=== PATIENT | male | born 1975 | race Caucasian/White ===

== ENCOUNTER 2020-04-17 12:17 | Emergency (ER) | payer MEDICARE, MEDICAID ==
[~2020-04-17] VITALS: Ht 188 cm; Wt 68.2 kg
[~2020-04-17 12:17] MED LIST: UNABLE TO OBTAIN
[2020-04-17 12:20] VITALS: BP 128/99
[2020-04-17 12:52] LABS: BASOPHILS # (AUTO) 0.1 X10'3 (0-0.2); BASOPHILS % (AUTO) 0.7 % (0-1); EOSINOPHILS # (AUTO) 0.2 X10'3 (0-0.9); EOSINOPHILS % (AUTO) 1.9 % (0-6); HEMATOCRIT 40.4 % (42.0-52.0); HEMOGLOBIN 13.6 g/dl (14.0-17.9); LYMPHOCYTES # (AUTO) 1.2 X10'3 (1.1-4.8); LYMPHOCYTES % (AUTO) 13.9 % (21-51); MEAN CORPUSCULAR HEMOGLOBIN 31.2 PG (27.0-31.0); MEAN CORPUSCULAR HGB CONC 33.7 g/dL (33.0-36.5); MEAN CORPUSCULAR VOLUME 92.7 FL (78-98); MEAN PLATELET VOLUME 7.8 FL (7.4-10.4); MONOCYTES # (AUTO) 0.4 X10'3 (0-0.9); MONOCYTES % (AUTO) 5.1 % (2-12); NEUTROPHILS # (AUTO) 6.9 X10'3 (1.8-7.7); NEUTROPHILS % (AUTO) 78.4 % (42-75); PLATELET COUNT 311 X10'3 (140-440); RED BLOOD COUNT 4.36 X10'6 (4.70-6.10); RED CELL DISTRIBUTION WIDTH 13.1 % (11.5-14.5); WHITE BLOOD COUNT 8.8 X10'3 (4.5-11.0)
[2020-04-17 13:17] LABS: ALANINE AMINOTRANSFERASE 40 U/L (12-78); ALBUMIN/GLOBULIN RATIO 1.1 (1.1-1.5); ALKALINE PHOSPHATASE 76 IU/L (46-116); ANION GAP 9 (8-16); ASPARTATE AMINO TRANSFERASE 16 U/L (10-37); BILIRUBIN,TOTAL 0.4 MG/DL (0.1-1.0); BLOOD UREA NITROGEN 17 MG/DL (7-18); BUN/CREATININE RATIO 17.5 (5.4-32.0); CALCIUM 9.2 MG/DL (8.5-10.1); CHLORIDE 107 MMOL/L (99-107); CREATININE 0.97 MG/DL (0.60-1.10); GLUCOSE 124 MG/DL (70-104); POTASSIUM 3.8 MMOL/L (3.5-5.1); SODIUM 142 MMOL/L (135-145); TOTAL PROTEIN 7.6 G/DL (6.4-8.2); eGFR 84 ML/MIN
[2020-04-17 13:27] LABS: ETHANOL < 0.010 GM/DL (0.0-0.010)
[2020-04-17 14:27] LABS: CLARITY,URINE CLEAR (Clear); COLOR,URINE YELLOW (Yellow); GLUCOSE, URINE NEGATIVE (Neg); KETONES,URINE NEGATIVE (Neg); LEUKOCYTE ESTERASE ,URINE NEGATIVE (Neg); NITRITES, URINE NEGATIVE (Neg); OCCULT BLOOD,URINE NEGATIVE (Neg); PROTEIN,URINE NEGATIVE (Neg); UROBILINOGEN,URINE 0.2 E.U/dL (0.2-1.0)
[2020-04-17 14:29] LABS: UA COLLECTION TYPE CLN CATCH MIDSTREAM
[2020-04-17 14:40] LABS: URINE AMPHETAMINE SCREEN POSITIVE (Neg); URINE BARBITUATE SCREEN NEGATIVE (Neg); URINE BENZODIAZEPINES SCREEN NEGATIVE (Neg); URINE CANNABINOID SCREEN POSITIVE (Neg); URINE COCAINE SCREEN NEGATIVE (Neg); URINE METHADONE SCREEN NEGATIVE (Neg); URINE OPIATE SCREEN NEGATIVE (Neg); URINE PHENCYCLIDINE SCREEN NEGATIVE (Neg)
--- NOTE | 2020-04-17 15:56 | NUR ---
PACKET FAXED TO [facility]
== END 2020-04-17 17:52 ==
LOC: ER 12:18
DX: F29 Unspecified psychosis not due to a substance or known physiological condition (principal); R41.0 Disorientation, unspecified; Z87.820 Personal history of traumatic brain injury
CPT/HCPCS: 36415; 80053; 80305; 80320; 81003; 84443; 85025; 99285

== ENCOUNTER 2020-06-11 20:50 | Emergency (ER) | payer MEDICARE, MEDICAID ==
[~2020-06-11] VITALS: Ht 188 cm; Wt 72.7 kg
[2020-06-11 20:51] VITALS: BP 141/104
== END 2020-06-11 21:19 | disposition home or self-care (01) ==
LOC: ER 20:51
DX: Z00.00 Encounter for general adult medical examination without abnormal findings (principal); F10.10 Alcohol abuse, uncomplicated; F15.90 Other stimulant use, unspecified, uncomplicated
CPT/HCPCS: 99281

== ENCOUNTER 2023-06-25 13:44 | Inpatient (IN) | payer MEDICARE, MEDICAID ==
[~2023-06-25] VITALS: Ht 188 cm; Wt 69.5 kg
[~2023-06-25 13:44] MED LIST changes: +CLIN-97 PO; +DOXY-1 PO; +NAPR-56 PO
[2023-06-25 14:52] LABS: BASOPHILS % (AUTO) 0.4 % (0-1); EOSINOPHILS # (AUTO) 0.1 X10'3 (0-0.9); EOSINOPHILS % (AUTO) 0.8 % (0-6); HEMATOCRIT 36.4 % (42.0-52.0); HEMOGLOBIN 12.5 g/dl (14.0-17.9); LYMPHOCYTES # (AUTO) 1.2 X10'3 (1.1-4.8); MEAN CORPUSCULAR HEMOGLOBIN 31.3 PG (27.0-31.0); MEAN CORPUSCULAR HGB CONC 34.2 g/dL (33.0-36.5); MEAN CORPUSCULAR VOLUME 91.4 FL (78-98); MONOCYTES # (AUTO) 0.6 X10'3 (0-0.9); NEUTROPHILS # (AUTO) 7.6 X10'3 (1.8-7.7); NEUTROPHILS % (AUTO) 79.8 % (42-75); PLATELET COUNT 385 X10'3 (140-440); RED BLOOD COUNT 3.98 X10'6 (4.70-6.10); RED CELL DISTRIBUTION WIDTH 12.8 % (11.5-14.5); WHITE BLOOD COUNT 9.5 X10'3 (4.5-11.0)
[2023-06-25 15:01] LABS: ALANINE AMINOTRANSFERASE 53 U/L (12-78); ALBUMIN 3.8 G/DL (3.4-5.0); ALKALINE PHOSPHATASE 85 IU/L (46-116); ANION GAP 8 (8-16); ASPARTATE AMINO TRANSFERASE 29 U/L (10-37); BILIRUBIN,TOTAL 0.2 MG/DL (0.1-1.0); BLOOD UREA NITROGEN 19 MG/DL (7-18); BUN/CREATININE RATIO 16.5 (10.0-20.0); CALCIUM 9.7 MG/DL (8.5-10.1); CHLORIDE 100 MMOL/L (99-107); CREATININE 1.15 MG/DL (0.60-1.10); GLUCOSE 110 MG/DL (70-104); SODIUM 134 MMOL/L (135-145); TOTAL CARBON DIOXIDE 25.6 MMOL/L (24-32); TOTAL PROTEIN 7.7 G/DL (6.4-8.2); eCRCL 77 ML/MIN; eGFR 68 ML/MIN
[2023-06-25 15:09] LABS: ETHANOL < 10 MG/DL (<10); THYROID STIMULATING HORMONE 1.73 ulU/ml (0.34-4.50)
--- NOTE | 2023-06-25 15:10 | NUR ---
Patient admitted to ED overflow. Tall thin middle aged dark headed man with black/herrera facial hair. Irritable. Labile. Tangential. Speech clear. Disheveled appearance. Impaired gait. Left knee packed wound. Reports was packed a few days ago here in the ER. Appears to be infected. Reports his friend kathi and his cat is in the care of his vetrinarian. Tearful. Reports "there's nothing left for me."
--- NOTE | 2023-06-25 16:24 | NUR ---
Patient responding to internal stimuli at this time. Eating and drinking snack provided by nurse. No s/sx of acute distess. Will continue to monitor.
[2023-06-25 17:14] LABS: URINE AMPHETAMINE SCREEN POSITIVE (Neg); URINE BARBITUATE SCREEN NEGATIVE (Neg); URINE BENZODIAZEPINES SCREEN NEGATIVE (Neg); URINE CANNABINOID SCREEN POSITIVE (Neg); URINE COCAINE SCREEN NEGATIVE (Neg); URINE METHADONE SCREEN NEGATIVE (Neg); URINE OPIATE SCREEN NEGATIVE (Neg); URINE PHENCYCLIDINE SCREEN NEGATIVE (Neg)
[2023-06-25] MEDS ORDERED: NO HOME MEDS (17:49)
--- NOTE | 2023-06-25 18:00 | NUR ---
Obtained wound culture to left knee. Wound consult orders placed. Will continue to monitor.
--- NOTE | 2023-06-25 18:41 | NUR ---
Transferred care to Paulina SCHAEFER. She's aware med req needs completed.
--- NOTE | 2023-06-25 19:58 | NUR ---
Pt ate 2 trays and some snacks. Pt is homeless. He is agitated because per pt he cannot get any help. He is verbalizing he might as well throw himself in front of a bus. He is disorganized and tangential at times in his conversation. He was released from our ED on Sunday with a prescription for Doxycycline to treat knee wound. He did not cherry picker operator the med. Dr Zhang declined request by nursing to order an antibiotic for the pt to take here, which angered the pt. Pt vented, encouraged to try and get a good night sleep and he would be evaluated by [facility] tomorrow. Pt was able to calm himself and is asleep at this time.
--- NOTE | 2023-06-25 22:53 | NUR ---
Pt sleeping. Woke up briefly yelled for pillow. Provided pillow and warm blanket. Pt grateful said thank you went back to sleep.
--- NOTE | 2023-06-26 00:46 | NUR ---
Up to BR independantly. Walks with a limp due to Knee wound.
--- NOTE | 2023-06-26 05:18 | NUR ---
packet sent to [facility]
--- NOTE | 2023-06-26 08:30 | NUR ---
Pt. awake and eating breakfast at bedside.
[2023-06-26] MEDS: JUVEN Shake w/Arg/Glut/Ca2+Bmb (Juven 19.3gm) pkt 240ml PO SCH ×3 (08:34→18:00)
--- NOTE | 2023-06-26 10:30 | NUR ---
Pt. talking with outreach and education social worker, pt. became agitated shouting. Security called and pt. calmed down with verbal redirection.
[2023-06-26] MEDS ORDERED: DOXYCYCLINE 100MG CAPSULE PO ONE ×2 (11:25→20:00)
[2023-06-26] MEDS ORDERED: haloperidol 5mg tablet PO ONE (11:45)
[2023-06-26] MEDS ORDERED: LORazepam 1 MG tablet PO ONE (11:45)
--- NOTE | 2023-06-26 11:49 | NUR ---
Pt. became agitated after talking with substance abuse navigator. Pt. yelling and swearing. RN attempted to verbally redirect pt. Pt. refuses to calm down. Pt. hitting bed with his fist violently. RN received order for Haldol 5mg and Ativan 2mg po. Pt. took medication voluntarily.
--- NOTE | 2023-06-26 12:02 | NUR ---
Received order for consult. Met with patient in regards to substance use and to see if patient was interested in resources for treatment options. Patient denies any substance use. Patient states that he takes Adderall. Patient became upset with me and said to refer him if I feel it's necessary. I discussed with RN and Magen from [facility] about what patient and I talked about.
--- NOTE | 2023-06-26 14:00 | NUR ---
Pt. awake and eating at bedside.
--- NOTE | 2023-06-26 14:30 | NUR ---
Wound care done by wound care nurse
--- NOTE | 2023-06-26 16:30 | NUR ---
Pt. asleep in bed in supine position.
--- NOTE | 2023-06-26 17:12 | NUR ---
RN informed that pt. has been accepted to [facility] by MAGALY Long.
[2023-06-26 17:56] VITALS: BP 111/78; PULSE 115; RESP 20; TEMP 99.2; O2SAT 97
--- NOTE | 2023-06-26 18:00 | NUR ---
ADMIT NOTE: Patient admitted to [facility] at 1730. Per his 5150 patient lay down in the road on [address] He stated that he wanted to get hit by a bus. He was also apparently jumping in front of cars. He has hx of TBI.
[2023-06-26 19:00] VITALS: RESP 18; O2SAT 99
[2023-06-26 19:31] VITALS: BP 134/77; PULSE 76; RESP 18; TEMP 98.5; O2SAT 99
[2023-06-26] MEDS: DOXYCYCLINE 100MG CAPSULE PO SCH (20:28)
--- NOTE | 2023-06-27 03:20 | NUR ---
Nursing Progress Note: Problem: Patient admitted to [facility] at 1730. Per his 5150 patient lay down in the road on [address]. He stated that he wanted to get hit by a bus. He was also apparently jumping in front of cars. He has hx of TBI. Interventions: Interventions: Introduced self and established rapport, maintained a safe and supportive environment, ensured contract for safety, provided clear and simple instructions, provided redirection as needed, and maintained Q 15min safety checks. Response: Patient is in his assigned bed sleeping. Pt did not respond to his name at start of shift. Web Application Dev Specialist tried to engage pt. and do his assessment after waking pt. up to take his antibiotic. Pt refused to talk and laid back in his bed and covered up his head with his blanket. Pt has a dressing on his left knee. Dressing is clean, dry and intact. Pt is here for trying to get run over by a car. Pt stated to provider in ED that he also has voices. Monitor for safety. Plan: Pt. continues to require medication adjustments and a safe and supportive environment.
[2023-06-27 07:00] VITALS: RESP 16; RESP 18; O2SAT 99
[2023-06-27] MEDS: DOXYCYCLINE 100MG CAPSULE PO SCH ×2 (07:56→19:09)
[2023-06-27] MEDS ORDERED: LORazepam 2 mg/ml vial ONE (08:13)
[2023-06-27] MEDS: JUVEN Shake w/Arg/Glut/Ca2+Bmb (Juven 19.3gm) pkt 240ml PO SCH ×3 (08:29→18:00)
--- NOTE | 2023-06-27 10:02 | NUR ---
S/R Initiation (Y=yes; N=no) Date Seclusion/Behavioral Restraint Episode Began: 06/27/23 Time Seclusion/Behavioral Restraint Episode Began: 08 Type of Restraint(Document Y for the type utilized) Restraints mechanical-4 point:[]Yes physical hold:[]Yes seclusion:[] No Behavior Necessitating Behavioral Restraint/Seclusion(Document Y for DTS and/or DTO). Danger to self:[] No Danger to others:[ Yes Alternatives Attempted(Document Y for the alternatives attempted).Y Decrease stimuli: No Diversional activities:No Verbal limit setting: Yes Medication: Yes Reality orientation: Yes Show of support: Yes Problem solving: Yes De-escalation: Yes Food and fluids:No Increased observation: Yes Other: No Behavioral Description(narrative of circumstances that led to use of S/R): Patient was yelling in his room, ZEINAB ForbesT started walking towards patient's room and patient increased his yelling and cussing. This RN was walking behind Andrei and patient was cussing at him and security was called for a show of force, patient became out of control and swung at cyber security analyst. Patient was held by security and staff and taken to the observation room and placed in restraints. Ativan 2 mg administered with good effect. Medications Given:(medication name/time/route/location/effectiveness): Ativan 2 mg Patient Injuries Y/N(if Y,describe/actions taken/outcome): No Notifications. No Provider/Guardian/conservator/Family/other/No one identified by patient to be notified: Unknown if patient has family. Education. Education Topic for Seclusion and Behavioral Restraint(must educate each element and Document Y) Hospital policy: Yes Reason for seclusion or restraint: Agression, yelling and swinging at security Bx necessary for release: Patient calm and patient states that he will calmly go to his room Monitoring of patient/behavior: VESTA Luis. Individual Taught(Document Y for individuals taught). Patient: Yes Family: No Significant other: No Barriers to Learning(Document Y for the barrier(s)identified). No None Identified: No Emotional Barriers: Drugs, methamphetamine Inability to Read: Unknown Denominational Practices: [place] Cognitive Impairment: No Lack of Motivation: Yes Language Barriers: No Hearing:[] Cultural Practice:[] Other:[] Teaching Method(Document Y for the method(s)utilized). Verbal Verbal: Yes Audio/Visual:[] Handouts:[] Demonstration:[] Other:[] Teaching Evaluation(Document Y for which response is applicable to patient). Verbalizes Understanding: Yes Needs Further Teaching: Yes Returns Demonstration:[] Needs Reinforcement:Yes Needs Practice:[] Needs Supervision:[]
--- NOTE | 2023-06-27 10:13 | NUR ---
S/R Discontinuation Yes (Y=yes; N=no) Criteria for Release from Seclusion/Behavioral Restraint.(Y/N) Yes Contracts for Safety: Yes No Longer Danger to Others: Yes No Longer Danger to Self: Yes Behavioral Description(narrative): Patient agrees to go calmly to his room and will go to MRI for his knee. Initiation Date of Seclusion/Behavioral Restraint Episode: 06/27/23 Initiation Time of Seclusion/Behavioral Restraint Episode:814 Discontinuation Date of Seclusion/Behavioral Restraint Episode:914 Discontinuation Time of Seclusion/Behavioral Restraint Episode:914
--- NOTE | 2023-06-27 10:22 | NUR ---
S/R Debrief (Y=yes; N=no) Yes Date of Seclusion/Behavioral Restraint Episode: 06/27/23 Time of Seclusion/Behavioral Restraint Episode: 814 Date of Patient Debrief: 06/27/23 Time of Patient Debrief: 829 Patient Attended Debrief (if N then comment why) No. Debrief Info in patient words if possible (not necessary if pt. did not attend debrief) What led to the episode: Yelling, out of control behavior, swinging at security. How could patient have handled things differently: Patient unreasonable. How could staff have handled things differently: Everything was performed exactly as it should have happened. Patient Perception of Episode: Patient now under control of his behaviors. Physical Well-Being-(Y/N) y Intact: Yes Altered: No Comment if altered:[] Psychological/Emotional Comfort-(Y/N) Provided food after let out of restraints. Intact: Yes Altered:No Comment if altered:[] Right to Privacy- (Y/N) Y Intact: Y Altered: No Comment if altered:[] Trauma Experienced- (Y/N)N Intact: N Altered: N Comment if altered:[]
--- NOTE | 2023-06-27 14:07 | NUR ---
PSYCHOSOCIAL ASSESSMENT Pt is a 47-year-old white male who was placed on a hold after client was laying in the middle of the road and voiced desire to be run over by vehicle. His mental health symptoms are SI, depression, paranoia, grandiosity, forgetful, disorganized thoughts/speech, labile, delusions (many of which are taoism in nature), isolative, excessive worry, hopelessness, inconsistent sleep, experiencing thoughts of not wanting to live but not necessarily wanting to . Client is homeless in [place], [place]. Client previously resided at [facility] .Client has history with [facility], but chart was recently closed in 05/2023 due to missing appointments and/or non-participation with treatment recommendations. His toxicology report at [facility] was positive for Amphetamines and THC. 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 Client previously reported SSI/SSDI (amount not reported). Radha Bailey LCSW
[2023-06-27] MEDS ORDERED: LORazepam 1 MG tablet PO ONE (14:55)
--- NOTE | 2023-06-27 15:02 | NUR ---
WOUND INFECTION EDUCATION PROVIDED BY WOUND CARE 1. Patient instructed to call their primary doctor, or go the ED immediately if any of the following symptoms occur: * Increased pain in wound * Increase in drainage from the wound * Redness in the skin surrounding the wound * Warmth in the skin surrounding the wound * Bleeding from the wound * Temperature of 101 or greater 2. If any of these occur while in the hospital tell a nurse immediately. Addendum: 06/27/23 at 1504 by Michelle Goncalves RN Amended: Links added.
--- NOTE | 2023-06-27 17:33 | NUR ---
Nursing Progress Note: Problem: Patient admitted to [facility] at 1730. Per his 5150 patient lay down in the road on [address]. He stated that he wanted to get hit by a bus. He was also apparently jumping in front of cars. He has hx of TBI. Interventions: Interventions: Introduced self and established rapport, maintained a safe and supportive environment, ensured contract for safety, provided clear and simple instructions, provided redirection as needed, and maintained Q 15min safety checks. Response: Received patient sleeping in bed with covers over his head. Patient was prompted to eat, but remained in bed. Patient was heard yelling in his room, Andrei [facility], went to investigate with this RN behind him. Patient was cussing and yelling at [facility]. RN called for security for a show of force. When security arrived, RN and staff went in to patients room. Patient was yelling and cussing at staff and become out of control and swung at firewall security engineer. Hands were placed on patient for containment, and he was taken to the isolation room where he was placed in restraints. 2 mg of Ativan was administered IM. Patient stayed in restraints for one hour, until he verbally agreed to walk slowly to his room and remain calm. Patient then slept until approximately 14:00 when his lunch arrived. Patient is to have MRI of his left knee. Patient refused skin check. Offered patient Ativan 1 mg, which he put the covers over his head and would not take. A resident came and talked to RN and could not get him to wake up or respond. MRI to be performed tomorrow. Plan: Pt. continues to require medication adjustments and a safe and supportive environment.
[2023-06-27 19:34] VITALS: BP 135/77; PULSE 111; RESP 18; TEMP 98.9; O2SAT 98
--- NOTE | 2023-06-28 00:46 | NUR ---
Nursing Progress Note: Problem: Patient admitted to [facility] at 1730. Per his 5150 patient lay down in the road on [address]. He stated that he wanted to get hit by a bus. He was also apparently jumping in front of cars. He has hx of TBI. Interventions: Interventions: Introduced self and established rapport, maintained a safe and supportive environment, ensured contract for safety, provided clear and simple instructions, provided redirection as needed, and maintained Q 15min safety checks. Response: Patient presented labile this shift; cooperative but guarded with MH assessment. He denied SI, HI, A/VH; minimal and delayed responses provided. Patient continues to self isolate in his room. Shortly after medical underwriter left patient's room it sounded as if he hit his bathroom wall several times and yelled out; when medical underwriter went to check on him he claimed to be doing OK and laid back down without further issue. Patient was provided HS snack prior to bed; observed sleeping and does not appear to be having difficulty. ABx continued; no ASE observed. Patient L knee wound gram positive cocci. Plan: Pt. continues to require medication adjustments and a safe and supportive environment.
--- NOTE | 2023-06-28 05:39 | NUR ---
KNOCK UP ASSEMBLER DOCUMENTATION: LATE ENTRY 06/28/2023 0541 Agree with [facility] KNOCK UP ASSEMBLER documentation/assessment from 06/26/2023
[2023-06-28 07:00] VITALS: RESP 16; O2SAT 98
[2023-06-28] MEDS: JUVEN Shake w/Arg/Glut/Ca2+Bmb (Juven 19.3gm) pkt 240ml PO SCH ×3 (08:00→18:12)
[2023-06-28] MEDS: DOXYCYCLINE 100MG CAPSULE PO SCH ×2 (08:49→22:07)
[2023-06-28 10:25] VITALS: BP 108/63; PULSE 87; RESP 16; TEMP 97; O2SAT 98
[2023-06-28] MEDS ORDERED: LORazepam 1 MG tablet PO ONE (10:50)
--- NOTE | 2023-06-28 15:16 | NUR ---
Nursing Progress Note: Problem: Patient admitted to [facility] at 1730. Per his 5150 patient lay down in the road on [address]. He stated that he wanted to get hit by a bus. He was also apparently jumping in front of cars. He has hx of TBI. Interventions: Attempted 1:1 assessment and establishment of rapport, therapeutic communication, active listening, attempted to obtain contract for safety, administered PO ABX per orders, provided distraction, direction, reality orientation, limit setting, verbal de-escalation, show of support, communicated with provider to obtain PRN medication, Q15 min safety checks. Response: Pt was up for breakfast, pt returned to bed immediately after breakfast. Pt took PO ABX Doxycycline with encouragement. Pt refused a physical assessment, pt refused mental health assessment. Pt is easily irritated and frustrated. Pt has verbal outbursts. Pt is paranoid and hostile at times. Pt appears to respond to internal stimuli and makes delusional statements. Pt began yelling loudly and angrily from his room before morning snack. Pt did not initially respond well to verbal de-escalation. Security was called for a show of support. Obtained order for Ativan 1 mg PO TID PRN. Obtained one time order for Ativan 2 mg PO which pt initially refused. Pt demanded that this nurse go away and leave him alone. As this nurse left the room pt stated in a somewhat threatening manner, "I know who you are." agricultural equipment sales engineer and another RN provided verbal de-escalation and again offered the PO Ativan to no avail. Left pt to calm himself in his room. A short while later another female RN again offered pt the Ativan 2 mg which he accepted at 1115. Pt refused to allow this RN to do wound care. Pt refused to shower. Dressing left knee C/D/I. Plan: Pt. continues to require medication adjustments and a safe and supportive environment.
[2023-06-28] MEDS ORDERED: haloperidol lactate 5mg/ml inj ONE (16:48)
[2023-06-28] MEDS ORDERED: diphenhydrAMINE 50 mg/ml inj ONE (16:49)
[2023-06-28] MEDS ORDERED: LORazepam 2 mg/ml vial ONE (16:50)
--- NOTE | 2023-06-28 17:03 | NUR ---
Emergent medication: Pt began continually yelling loudly and vehemently. Verbal de-escalation, reality orientation, and a show of support ineffective. Pt angry, hostile towards staff. Pt was offered PO PRN Ativan by the supercharger mechanic, pt adamantly refused. Order obtained for IM Haldol 10 mg, Ativan 2 mg, and Benadryl 50 mg. Security was called. Pt allowed the injections to be given without fighting around 1700, pt did not need any physical restraint. Meds were given in his room. Pt remained in his bed afterwards and yelled for awhile afterwards accusatory statements towards staff like, "liars!" Pt is now quieting down.
--- NOTE | 2023-06-28 17:21 | NUR ---
5250: Attempted to advise pt of his 5250 and his certification hearing. Pt is asleep. Will explain to pt when awake.
[2023-06-28 19:30] VITALS: RESP 12; RESP 14
--- NOTE | 2023-06-29 05:01 | NUR ---
Nursing Progress Note: Problem: Patient admitted to [facility] at 1730. Per his 5150 patient lay down in the road on [address]. He stated that he wanted to get hit by a bus. He was also apparently jumping in front of cars. He has hx of TBI. Interventions: Interventions: Introduced self and established rapport, maintained a safe and supportive environment, ensured contract for safety, provided clear and simple instructions, provided redirection as needed, and maintained Q 15min safety checks. Response: Patient sleeping in bed at start of shift. RN tried gently waking him to complete his assessment and give him medications. Pt persisted to sleep so RN came back again later and was able to wake pt enough to give him his abx and take a listen to his lung sounds. Pt was very groggy and did not speak to RN but grabbed a bowel from his dinner tray on side table and started eating the cake with is hands. RN was unable to conduct a full assessment or get any answers from pt. Pt slept well throughout the night. Plan: Pt. continues to require medication adjustments and a safe and supportive environment.
[2023-06-29 07:00] VITALS: RESP 16; O2SAT 99
[2023-06-29 08:00] VITALS: BP 101/65; PULSE 88; RESP 16; TEMP 98.3; O2SAT 99
[2023-06-29] MEDS: DOXYCYCLINE 100MG CAPSULE PO SCH ×2 (08:30→20:21)
[2023-06-29] MEDS: JUVEN Shake w/Arg/Glut/Ca2+Bmb (Juven 19.3gm) pkt 240ml PO SCH ×3 (08:31→18:26)
--- NOTE | 2023-06-29 12:45 | NUR ---
Pt. was escorted in a wheelchair to receive an ordered MRI of his left lower extremity accompanied by Tech and security.
--- NOTE | 2023-06-29 13:05 | NUR ---
Pt. was brought back to the unit in wheelchair accompanied by [employer] and [employer]. Per report from [employer], pt. was only compliant with being on the MRI table for a few minutes before he began yelling out agitatedly regarding the loud noises of the machine. He was quickly transported back to the unit and remained somewhat verbally agitated making statements that he had already received an MRI and does not want to do it again. Pt. was provided with lunch in his room and is eating at this time, will continue to monitor closely. Addendum: 06/29/23 at 1440 by Magnolia Wright RN Pt. was unable to tolerate all images order for MRI, however a few were obtained.
--- NOTE | 2023-06-29 17:19 | NUR ---
Nursing Progress Note: Problem : Patient admitted to [facility] at 1730. Per his 5150 patient lay down in the road on [address]. He stated that he wanted to get hit by a bus. He was also apparently jumping in front of cars. He has hx of TBI. Interventions : Introduced self and attempted to established rapport, maintained a safe and supportive environment, provided clear and simple instructions, attempted to orient to reality, monitored behavior and provided redirection as needed, completed ordered wound care, and maintained Q 15min safety checks. Response : Received pt. sleeping in bed at the beginning of the shift, he was awoken to attend breakfast in the Group Room, however proceeded to grab his tray off the cart and bring it back to his room eating there. Pt. continued to eat meals in his room throughout the shift, and exhibits what appears to be anxiety when around others. Pt. was cooperative with taking his ordered mediation, however when this ghost writer introduced herself and attempted to complete 1:1, pt. stated agitatedly, "I need more rest! I keep getting woke up!" Pt. returned to sleep and slept until before lunch when he was observed to be sitting up at bedside eating a snack. This ghost writer re-approached pt. and he presented as more cooperative, but remains labile and responds very minimally to select questions only with 1-2 word responses. He covers his head with a blanket and makes poor eye contact. Pt. is A&O X2, and states, "I don't like [place]." He will not elaborate on this upon further questioning. Pt. does not respond to any questions regarding his mental health. Wound care to pt's left knee was completed and pt. began crying during this stating, "It's gross." He denies any pain at area and no drainage or s/s of infection were noted. Later, at approximately 1400, pt. began yelling out agitatedly and punching his bed while alone in his room. He appeared to be responding aloud to internal stimuli and yelled out, "God damn it, shut the f... up!" Staff provided verbal redirection with effectiveness. When questioned what he was upset about pt. reported that a women named Lyly has his phone and his cat. He also talked about the [facility] and [facility], but had difficulty articulating his thoughts which appeared to add to his frustration. Pt. did not exhibit any further agitated outbursts, will continue to monitor closely. Plan : Pt. requires interruption of current crisis, medication adjustments, and a safe and supportive environment.
[2023-06-29 19:17] VITALS: BP 117/78; PULSE 95; RESP 14; TEMP 98.5; O2SAT 99
[2023-06-29] MEDS ORDERED: OLANZAPINE 5 MG TABLET PO SCH (21:00)
--- NOTE | 2023-06-30 05:21 | NUR ---
Nursing Progress Note: Problem: Patient admitted to [facility] at 1730. Per his 5150 patient lay down in the road on [address]. He stated that he wanted to get hit by a bus. He was also apparently jumping in front of cars. He has hx of TBI. Interventions: Interventions: Introduced self and established rapport, maintained a safe and supportive environment, ensured contract for safety, provided clear and simple instructions, provided redirection as needed, and maintained Q 15min safety checks. Response: Patient sleeping in bed at start of shift. Pt had outburst of yelling, shouting profanities about messing with his door. When RN went in to assess and give meds pt was agitated and explained that he didnt like his door being opened and closed that it messes with my head, I just want to sleep. After RN tried to coax pt to take his Zyprexa he still refused but took the antibiotic when he heard it was for his knee. Pt refused assessment and just wanted to sleep. After med pass pt was quiet and slept all night besides 1 outburst of yelling and cursing by himself in his room. Plan: Pt. continues to require medication adjustments and a safe and supportive environment.
[2023-06-30 07:00] VITALS: RESP 14; O2SAT 99
[2023-06-30] MEDS: JUVEN Shake w/Arg/Glut/Ca2+Bmb (Juven 19.3gm) pkt 240ml PO SCH ×3 (08:30→18:07)
[2023-06-30] MEDS: DOXYCYCLINE 100MG CAPSULE PO SCH ×2 (08:30→21:15)
[2023-06-30 10:39] VITALS: BP 114/76; PULSE 80; RESP 14; TEMP 98.3; O2SAT 99
[2023-06-30] MEDS ORDERED: OLANZapine 2.5MG tablet PO ONE (11:55)
--- NOTE | 2023-06-30 15:48 | NUR ---
Nursing Progress Note: Problem : Patient admitted to [facility] at 1730. Per his 5150 patient lay down in the road on [address] He stated that he wanted to get hit by a bus. He was also apparently jumping in front of cars. He has hx of TBI. Interventions : Maintained a safe and supportive environment, provided clear and simple instructions, attempted to orient to reality, monitored behavior and provided redirection as needed, completed ordered wound care, encouraged participation on the unit, and maintained Q 15min safety checks. Response : Received pt. sleeping in bed at the beginning of the shift, he was awoken for vital signs and requested to have the dressing to his left knee changed which was currently hanging down around his left ankle. This software writer gathered supplies and proceeded to remove pt's old dressing, however he then became verbally agitated and began yelling at this software writer. He stated, "I"m not f...ing doing it unless you get me one of those wraps!" Pt. then proceeded to run out of his room into the hallway demanding, "I need it now! I'm going to get one!" This software writer finally figured out that pt. was referring to an DOUGIE bandage wrap as he continues to appear to have difficulty expressing his thoughts. Pt. was able to be redirected back to his room while this software writer got approval from the charge entry clerk to use an DOUGIE bandage. Pt. denies any current S/I and is able to contract for safety so use of an DOUGIE bandage over his dressings was approved in order to hold them in place. Pt. reported contentment and thanked this software writer even laughing a little bit, he remains labile. Pt. continues to respond minimally to select questions only, and a complete mental health assessment was unable to be completed. Pt. continues to eat meals in his room throughout the shift, but he was observed to come out of his room for short intervals at a time. At approximately 1200, pt. came to the nurse's station requesting a "Mood stabilizer." This was endorsed to Dr. Romo and received orders for Zyprexa 5mg, pt. was cooperative with taking this medication. At approximately 1600, pt. again became verbally agitated when talking to Dr. Romo. Staff stood by for safety concerns while pt. spoke loudly in an angry manner, however he was finally able to regain his composure and calm down. Will continue to monitor pt. closely. Plan : Pt. medication adjustments, and a safe and supportive environment.
[2023-06-30 19:00] VITALS: RESP 16; O2SAT 94
[2023-06-30 20:00] VITALS: BP 112/89; PULSE 95; RESP 16; TEMP 97.7; O2SAT 99
[2023-06-30] MEDS: LORazepam 1 MG tablet PO PRN (21:15)
[2023-06-30] MEDS: OLANZapine 2.5MG tablet PO SCH (21:15)
--- NOTE | 2023-07-01 05:35 | NUR ---
Nursing Progress Note: Problem : Patient admitted to [facility] at 1730. Per his 5150 patient lay down in the road on [address]. He stated that he wanted to get hit by a bus. He was also apparently jumping in front of cars. He has hx of TBI. Interventions : Maintained a safe and supportive environment, provided clear and simple instructions, attempted to orient to reality, monitored behavior and provided redirection as needed, completed ordered wound care, encouraged participation on the unit, and maintained Q 15min safety checks. Response : Patient isolates in his room following shift change. Patient states he is trying to sleep. He states "I feel good." Patient states he is happy on his vanessa bandage on his knee. It was changed on day shift, he declines any treatment or re-wrap. Patient had aggressive behavior on day shift, non observed now. Patient makes direct eye contact. He speaks in a normal rate and rhythm. Patient denies S/I, H/I, or any hallucinations. The patient did express some anxiety when his roommate became unruly. This patient then requested and was given a PO Ativan. The patient then retired to sleep. Plan : Pt. medication adjustments, and a safe and supportive environment.
[2023-07-01 07:00] VITALS: RESP 16; O2SAT 99
[2023-07-01 08:00] VITALS: BP 104/68; PULSE 84; RESP 16; TEMP 98.2; O2SAT 100
[2023-07-01] MEDS ORDERED: dextroamphetamine/amphetamine 10mg tablet PO SCH (08:00)
[2023-07-01] MEDS: DOXYCYCLINE 100MG CAPSULE PO SCH ×2 (08:07→20:36)
[2023-07-01] MEDS: LORazepam 1 MG tablet PO PRN ×3 (08:07→22:33)
[2023-07-01] MEDS: dextroamphetamine/amphetamine 5mg tablet PO SCH ×2 (08:08→12:37)
[2023-07-01] MEDS: JUVEN Shake w/Arg/Glut/Ca2+Bmb (Juven 19.3gm) pkt 240ml PO SCH ×3 (08:08→18:12)
[2023-07-01] MEDS ORDERED: dextroamphetamine/amphetamine 5mg tablet PO ONE (15:30)
--- NOTE | 2023-07-01 16:15 | NUR ---
Nursing Progress Note: prabhjot Problem : Patient admitted to [facility] on a 5150 DTS: patient was lying down in the road on [address]. He stated that he wanted to get hit by a bus. He was also apparently jumping in front of cars. He has hx of TBI. Interventions : Introduced self and attempted to established rapport, maintained a safe and supportive environment, provided clear and simple instructions, attempted to orient to reality, monitored behavior and provided redirection as needed, completed ordered wound care, and maintained Q 15min safety checks. Response : Pt. received asleep and awoke to take his medications without hesitation. Pt. became irritable during MH assessment, refused wound care and began yelling do I not want be on planet pt. appears to struggle with communication, and presented with increased agitation; PRN Ativan administered with good results. Pt. ate his meals in the community room without issue. At 1400 pt. became disorganized and raising his voice stating if Im over here then Im over there, fuck dont you hear that Pt. again was difficult to redirect and yelling at this medical technical writer; PRN Ativan administered with little effect. His behavior intesified he was yelling "fucking stab me" this medical technical writer was unable to redirect pt. and his verbal abuse and threats of violence intensified; Provider notified, one time order Adderall 15mg received and was administered. Encouraged pt. to shower, fairly groomed, and wearing unit scrubs. Plan : Pt. requires interruption of current crisis, medication adjustments, and a safe and supportive environment.
--- NOTE | 2023-07-01 16:35 | NUR ---
Pt. refused WC and pictures Addendum: 07/01/23 at 1638 by Rachel Mansfield LVN Amended: Links added.
[2023-07-01 19:00] VITALS: RESP 17; O2SAT 100
[2023-07-01 20:00] VITALS: BP 121/86; PULSE 119; RESP 18; TEMP 97.8; O2SAT 100
[2023-07-01] MEDS: OLANZapine 2.5MG tablet PO SCH (20:36)
[2023-07-01] MEDS: NICOTINE POLACRILEX 2 MG LOZENGE BC PRN (21:46)
--- NOTE | 2023-07-02 01:05 | NUR ---
Nursing Progress Note: prabhjot Problem : Patient admitted to [facility] on a 5150 DTS: patient was lying down in the road on [address]. He stated that he wanted to get hit by a bus. He was also apparently jumping in front of cars. He has hx of TBI. Interventions : Introduced self and attempted to established rapport, maintained a safe and supportive environment, provided clear and simple instructions, attempted to orient to reality, monitored behavior and provided redirection as needed, completed ordered wound care, and maintained Q 15min safety checks. Response : Pt up on unit at start of shift. He walked in halls in between watching TV in group room. Pt is hyperverbal. Conversation is difficult to Follow because it is tangential bordering on a flight of ideas. At one point he was sitting on the floor in the johns crying actual tears and talking about someone he knew that . He stopped crying and the subject changed to something about helicopters following him then to him to him jumping out in traffic. He is pleasant and cooperative, laughs easily, took all medications plus a PRN Ativan. Plan : Pt. requires interruption of current crisis, medication adjustments, and a safe and supportive environment.
[2023-07-02 07:00] VITALS: RESP 16; O2SAT 97
[2023-07-02] MEDS: DOXYCYCLINE 100MG CAPSULE PO SCH ×2 (07:35→21:38)
[2023-07-02] MEDS: dextroamphetamine/amphetamine 5mg tablet PO SCH ×2 (07:35→12:09)
[2023-07-02] MEDS: LORazepam 1 MG tablet PO PRN ×2 (07:35→10:46)
[2023-07-02 08:00] VITALS: BP 112/63; PULSE 95; RESP 16; TEMP 97.8; O2SAT 98
[2023-07-02] MEDS: JUVEN Shake w/Arg/Glut/Ca2+Bmb (Juven 19.3gm) pkt 240ml PO SCH ×3 (08:22→18:00)
--- NOTE | 2023-07-02 09:38 | NUR ---
Initial: Pt admit DX SI, mood d/o, and meth abuse w/ L knee wound from abscess no staging in WOC note per EMR. Pt PO mostly ~100% avg regular diet w/ double protein TID per order, occasional snacks, and Maury shake TIDWM per EMR; exceeding estimated needs. RD d/w RN recommends cancelling Maury shake TID given PO already meeting ~266% max protein estimated needs if MD agreeable. LBM 06/30 per EMR. Will continue to follow. Rec: 1. continue regular diet; double protein TID per order 2. cancel Maury shake TID given current intake meeting ~266% max protein estimated needs if MD agreeable 3. bowel care per rx 4. weekly wt Addendum: 07/02/23 at [address] Amended: Links added.
[2023-07-02] MEDS ORDERED: cloNIDine 0.2 MG/24 HR patch (7 day patch) TD ONE (11:40)
[2023-07-02] MEDS ORDERED: LORazepam 1 MG tablet PO PRN (13:35)
--- NOTE | 2023-07-02 17:23 | NUR ---
Nursing Progress Note: Greg Problem : Patient admitted to [facility] on a 5150 DTS: patient was lying down in the road on [address]. He stated that he wanted to get hit by a bus. He was also apparently jumping in front of cars. He has hx of TBI. Interventions : Introduced self and attempted to established rapport, maintained a safe and supportive environment, provided clear and simple instructions, attempted to orient to reality, monitored behavior and provided redirection as needed, completed ordered wound care, and maintained Q 15min safety checks. Response : Pt. received awake and waiting for coffee. Pt. refused to participate fully with 1:1 assessment and yelled at this sql report writer in addition threatening aggression; PRN Ativan administered with some effect. Pt. spent the morning perseverating about upcoming hearing, his behavior remained labile and delusional statements of threats were ramping up; 2nd dose PRN Ativan administered. Two hours later he attended his hearing, he quickly came out grabbed his lunch tray and went to his room. Staff f/u pt. at which point he broke his lunch tray and crushed food holders. Pt. spoke to provider and verbalized the ability to maintain his behavior. At 1445 this sql report writer approached pt. in his room to provide WC, he refused and yelled at this sql report writer slamming doors; security was called and PRN Ativan 2mg PO admin. SAFETY TRAY ordered r/t broken hard plastic cup found in his room. Plan : Pt. requires interruption of current crisis, medication adjustments, and a safe and supportive environment.
[2023-07-02 19:00] VITALS: RESP 18; O2SAT 100
[2023-07-02 20:00] VITALS: BP 137/81; PULSE 106; RESP 18; TEMP 97.8; O2SAT 100
[2023-07-02] MEDS: OLANZapine 2.5MG tablet PO SCH (21:38)
[2023-07-02] MEDS: NICOTINE POLACRILEX 2 MG LOZENGE BC PRN (22:05)
[2023-07-03] MEDS ORDERED: benztropine 1 mg/ml 2ml ampule IM ONE (04:15)
[2023-07-03] MEDS ORDERED: LORazepam 2 mg/ml vial IM ONE ×2 (04:15→14:38)
[2023-07-03] MEDS ORDERED: haloperidol lactate 5mg/ml inj IM ONE ×2 (04:15→14:38)
[2023-07-03] MEDS ORDERED: LORazepam 2 mg/ml vial ONE (04:15)
[2023-07-03] MEDS ORDERED: benztropine 1 mg/ml 2ml ampule ONE (04:16)
[2023-07-03] MEDS ORDERED: haloperidol lactate 5mg/ml inj ONE ×2 (04:17→14:37)
--- NOTE | 2023-07-03 04:36 | NUR ---
Late entry: 0405-Patient came out of room, pacing, agitated, punched exit sign and broke it, tossing items out of room. Security called. 0410-2 x staff approached patient and directed him to seclusion room and locked door. Pt began punching meeks and making holes in the meeks. He was yelling, cursing, and pacing in agitated manner. Pt stated " get me the fuck out of here.". Dr. Burton contacted by business writer. 0412-Dr. Burton ordered Ativan 2mg IM, Haldol 5mg IM, and Congentin 1mg IM give now. Pt was guided to lay supine on bed inside seclusion room. 0415-Medication's were administered as ordered into left and right gluteal muscle. 0420-Dr. Burton contacted again. Dr. Burton ordered to place patient in seclusion.
--- NOTE | 2023-07-03 05:23 | NUR ---
S Initiation (Y=yes; N=no) Date Seclusion Began:07/03/23 Time Seclusion Began: 04:10 Type of Restraint(Document Y for the type utilized) mechanical-4 point:N physical hold:N seclusion:Y Behavior Necessitating Behavioral Restraint/Seclusion(Document Y for DTS and/or DTO). Danger to self:Y Danger to others:Y Alternatives Attempted(Document Y for the alternatives attempted). Decrease stimuli:Y Diversional activities:Y Verbal limit setting:Y Medication:Y Reality orientation:Y Show of support:Y Problem solving:Y De-escalation:Y Food and fluids:Y Increased observation:Y Behavioral Description(narrative of circumstances that led to use of S/ ):Pt angry earlier in shift about outcome of 5250 hearing able to verbally deescalate. At 04:00 yelling and threatening unable to deescalate. Into observation room pt punched wall created a large hole in wall, he then smeared blood on the wall. Order for 5mg Haldol, 1mg Ativan and 1mg Cogentin IM given pt remained agitated for another 30 minutes, then took mattress of the bed layed on the floor of the bathroom and went to sleep. Medications Given:(5mg Haldol, 1mg Ativan and 1mg Cogentin IM effective ): Patient Injuries Y ,hand bleeding /actions taken none due to aggression /outcome TBD): Notifications. Dr. Burton Provider No one identified by patient to be notified:[] Education. Education Topic for Seclusion and Behavioral Restraint(must educate each element and Document Y) Hospital policy:Y Reason for seclusion or restraint:Y Bx necessary for release:Y Monitoring of patient/behavior:Y Individual Taught(Document Y for individuals taught). Patient:Y Family:N Significant other:[] Barriers to Learning( Y barrier=Aggression, Psychosis ). Emotional Barriers: Anger Inability to Read: N Sikh Practices: NA Cognitive Impairment: Y Hx of TBI Lack of Motivation: Y Language Barriers:N Hearing:WNL Cultural Practice:NA Other:[] Teaching Method(Document Y for the method(s)utilized). Verbal:Y Audio/Visual:N Handouts:N Demonstration:N Other:[] Teaching Evaluation(Document Y for which response is applicable to patient). Verbalizes Understanding:N Needs Further Teaching:Y Returns Demonstration:[] Needs Reinforcement:N Needs Practice:NA Needs Supervision:Y
--- NOTE | 2023-07-03 05:24 | NUR ---
Nursing Progress Note: Greg Problem : Patient admitted to [facility] on a 5150 DTS: patient was lying down in the road on [address]. He stated that he wanted to get hit by a bus. He was also apparently jumping in front of cars. He has hx of TBI. Interventions : Introduced self and attempted to established rapport, maintained a safe and supportive environment, provided clear and simple instructions, attempted to orient to reality, monitored behavior and provided redirection as needed, completed ordered wound care, and maintained Q 15min safety checks. Response : Pt received in day room. He was finishing dinner. He was very angry that is 5250 was upheld today. He was upset that the social worker school and court painted him to be negative person. He stated when he was asked about where he would be living, he said the motel. When he was inquired to provide further information, he stated that the court officials transpired against him to hold him here. Pt was disorganized in thought process. He continued to perseverate on him wanting to leave. Pt was able to be intermittently calm with de-escalation. He was compliant with his night time medication. He paced the unit. He was door checking. Staff intervened with therapeutic communication. Pt was effective at deescalating patient mildly. He was not receptive to PRNs. He continued with verbal threats to destroy property. He decided on his own to file a grievance which was turned in. Pt was able to go to room and sleep for a few hours. 0405-Patient came out of room, pacing, agitated, punched exit sign and broke it, tossing items out of room. Security called. 0410-2 x staff approached patient and directed him to seclusion room and locked door. Pt began punching meeks and making holes in the meeks. He was yelling, cursing, and pacing in agitated manner. Pt stated "get me the fuck out of here.". Dr. Burton contacted by life insurance underwriter. 0412-Dr. Burton ordered Ativan 2mg IM, Haldol 5mg IM, and Congentin 1mg IM give now. Pt was guided to lay supine on bed inside seclusion room. 0415-Medication's were administered as ordered into left and right gluteal muscle. 0420-Dr. Burton contacted again. Dr. Burton ordered to place patient in seclusion. Medication was effective. Plan : Pt. requires interruption of current crisis, medication adjustments, and a safe and supportive environment.
--- NOTE | 2023-07-03 05:57 | NUR ---
MH S R Debrief (Y=yes; N=no) Date of Seclusion/Behavioral Restraint Episode:07/03/23 Time of Seclusion/Behavioral Restraint Episode:08:10 Date of Patient Debrief:NA Time of Patient Debrief:NA Patient Attended Debrief (if N then comment why)N because aggression Debrief Info in patient words if possible (not necessary if pt. did not attend debrief) What led to the episode: Pt angry about outcome of 5250 hearing How could patient have handled things differently: Not become violent and punch hole in wall How could staff have handled things differently: Staff did an excellent job Patient Perception of Episode: NA Physical Well-Being-(injury to hand)
[2023-07-03 07:00] VITALS: RESP 16; O2SAT 98
[2023-07-03 08:00] VITALS: RESP 16
[2023-07-03] MEDS: dextroamphetamine/amphetamine 5mg tablet PO SCH ×2 (08:00→13:00)
[2023-07-03] MEDS: DOXYCYCLINE 100MG CAPSULE PO SCH ×3 (08:00→20:02)
[2023-07-03] MEDS: JUVEN Shake w/Arg/Glut/Ca2+Bmb (Juven 19.3gm) pkt 240ml PO SCH ×4 (08:00→19:20)
[2023-07-03] MEDS ORDERED: OLANZapine **IM** 10 mg inj. IM ONE (14:25)
[2023-07-03] MEDS ORDERED: diphenhydrAMINE 50 mg/ml inj ONE (14:34)
--- NOTE | 2023-07-03 17:33 | NUR ---
Nursing Progress Note: Greg Problem : Patient admitted to [facility] on a 5150 DTS: patient was lying down in the road on [address]. He stated that he wanted to get hit by a bus. He was also apparently jumping in front of cars. He has hx of TBI. Interventions : Introduced self and attempted to established rapport, maintained a safe and supportive environment, provided clear and simple instructions, attempted to orient to reality, monitored behavior and provided redirection as needed, completed ordered wound care, and maintained Q 15min safety checks. Response : Pt. received asleep in a quiet area seclusion. He slept through breakfast and was awoke for lunch and encourage to return to his room. Pt. was escorted with a show of support from staff at which time some aggression was displayed; he was physically escorted to seclusion by security and emergent medications were necessary. Pt. remained in restraints from 1445 to 1600 and seclusion from 1600 to 1645; denial of rights followed per protocol. Pt. then rested in a quiet area without incident. Plan : Pt. requires interruption of current crisis, medication adjustments, and a safe and supportive environment.
--- NOTE | 2023-07-03 17:39 | NUR ---
S/R Initiation (Y=yes; N=no) Date Seclusion/Behavioral Restraint Episode Began:07/03/23 Time Seclusion/Behavioral Restraint Episode Began:1600 Seclusion/ 1445 Restraint Type of Restraint(Document Y for the type utilized) mechanical-4 point:[Y] physical hold:[] seclusion:[Y] Behavior Necessitating Behavioral Restraint/Seclusion(Document Y for DTS and/or DTO). Danger to self:[] Danger to others:[] Alternatives Attempted(Document Y for the alternatives attempted). Decrease stimuli:[Y] Diversional activities:[] Verbal limit setting:[Y] Medication:[] Reality orientation:[] Show of support:[Y] Problem solving:[] De-escalation:[] Food and fluids:[Y] Increased observation:[Y] Other:[] Behavioral Description(narrative of circumstances that led to use of S/R):He slept through breakfast and was awoke for lunch and encourage to return to his room. Pt. was escorted with a show of support from staff at which time some aggression was displayed; he was physically escorted to seclusion by security and emergent medications were necessary. Pt. remained in restraints from 1445 to 1600 and seclusion from 1600 to 1645; denial of rights followed per protocol. ] Medications Given:(medication name/time/route/location/effectiveness):[ Benadryl 50mg IM, Ativan 2mg IM, Haldol 10mg IM; all meds effective Patient Injuries Y/N(if Y,describe/actions taken/outcome):[n] Notifications. Provider/Guardian/conservator/Family/other/No one identified by patient to be notified:[n] Education. Education Topic for Seclusion and Behavioral Restraint(must educate each element and Document Y) Hospital policy:[y] Reason for seclusion or restraint:[y] Bx necessary for release:[y] Monitoring of patient/behavior:[y] Individual Taught(Document Y for individuals taught). Patient:[y] Family:[] Significant other:[] Barriers to Learning(Document Y for the barrier(s)identified). None Identified:[] Emotional Barriers:[] Inability to Read:[] Yazidism Practices:[] Cognitive Impairment:[y, pt. has Hx of TBI] Lack of Motivation:[] Language Barriers:[] Hearing:[] Cultural Practice:[] Other:[] Teaching Method(Document Y for the method(s)utilized). Verbal:[y] Audio/Visual:[] Handouts:[] Demonstration:[] Other:[] Teaching Evaluation(Document Y for which response is applicable to patient). Verbalizes Understanding:[y] Needs Further Teaching:[] Returns Demonstration:[] Needs Reinforcement:[y] Needs Practice:[] Needs Supervision:[]
--- NOTE | 2023-07-03 17:55 | NUR ---
COST SPECIALIST documentation: I have reviewed all interventions and assessments performed and documented by AGATHA Paulino.
--- NOTE | 2023-07-03 17:56 | NUR ---
S/R Discontinuation (Y=yes; N=no) y Criteria for Release from Seclusion/Behavioral Restraint.(Y/N) Contracts for Safety:[y] No Longer Danger to Others:[y] No Longer Danger to Self:[y] Behavioral Description(narrative):[He slept through breakfast and was awoke for lunch and encourage to return to his room. Pt. was escorted with a show of support from staff at which time some aggression was displayed; he was physically escorted to seclusion by security and emergent medications were necessary. Pt. remained in restraints from 1445 to 1600 and seclusion from 1600 to 1645; denial of rights followed per protocol. Initiation Date of Seclusion/Behavioral Restraint Episode:[07/03/23] Initiation Time of Seclusion 1600/Behavioral Restraint Episode 1445 Discontinuation Date of Seclusion Behavioral Restraint Episode:[07/03/23/] Discontinuation Time of [id number]/Behavioral Restraint 1600
--- NOTE | 2023-07-03 18:00 | NUR ---
S/R Debrief (Y=yes; N=no) Date of Seclusion/Behavioral Restraint Episode:[07/03/23] Time of Seclusion 1600/Behavioral Restraint [id number] Date of Patient Debrief:[07/03/23] Time of Patient Debrief:[] Patient Attended Debrief (if N then comment why)[n Debrief Info in patient words if possible (not necessary if pt. did not attend debrief) What led to the episode:[] How could patient have handled things differently:[] How could staff have handled things differently:[] Patient Perception of Episode:[] Physical Well-Being-(Y/N) Intact:[y] Altered:[n] Comment if altered:[] Psychological/Emotional Comfort-(Y/N) Intact:[y] Altered:[n] Comment if altered:[] Right to Privacy- (Y/N) Intact:[y] Altered:[n] Comment if altered:[] Trauma Experienced- (Y/N) Intact:[n] Altered:[n] Comment if altered:[]
[2023-07-03 19:00] VITALS: RESP 14; O2SAT 98
[2023-07-03 19:43] VITALS: BP 98/54; PULSE 106; RESP 14; TEMP 98.8; O2SAT 98
[2023-07-03] MEDS: OLANZapine 2.5MG tablet PO SCH ×2 (20:03→20:42)
--- NOTE | 2023-07-04 02:50 | NUR ---
Nursing Progress Note: Problem: Patient admitted to [facility] on a 5150 DTS: patient was lying down in the road on [address]. He stated that he wanted to get hit by a bus. He was also apparently jumping in front of cars. He has hx of TBI. Interventions : Introduced self and attempted to established rapport, maintained a safe and supportive environment, provided clear and simple instructions, attempted to orient to reality, monitored behavior and provided redirection as needed, completed ordered wound care, and maintained Q 15min safety checks. Response: *following quote of nurse reporting incident* He was very angry that is 5250 was upheld today. He was upset that the oncology social work and court painted him to be negative person. He stated when he was asked about where he would be living, he said the motel. When he was inquired to provide further information, he stated that the court officials transpired against him to hold him here. Pt was disorganized in thought process. He continued to perseverate on him wanting to leave. Pt was able to be intermittently calm with de-escalation. He was compliant with his night time medication. He paced the unit. He was door checking. Staff intervened with therapeutic communication. Pt was effective at deescalating patient mildly. He was not receptive to PRNs. He continued with verbal threats to destroy property. He decided on his own to file a grievance which was turned in. Pt was able to go to room and sleep for a few hours. 0405-Patient came out of room, pacing, agitated, punched exit sign and broke it, tossing items out of room. Security called. 0410-2 x staff approached patient and directed him to seclusion room and locked door. Pt began punching meeks and making holes in the meeks. He was yelling, cursing, and pacing in agitated manner. Pt stated "get me the fuck out of here.". Dr. Burton contacted by show card writer. 0412-Dr. Burton ordered Ativan 2mg IM, Haldol 5mg IM, and Cogentin 1mg IM give now. Pt was guided to lay supine on bed inside seclusion room. This nurse resumed care for patient at 1830. Upon taking over care, patient was in seclusion room (since 07/03 @0410) with door unlocked. Patient remained in bed occasionally switching positions. Patient refused medication pass. Patient stated leave me alone. This nurse had no info on whether he consumed his Maury shake. This nurse reassessed on the NOV, and put ASLEEP. Plan : Pt. requires interruption of current crisis, medication adjustments, and a safe and supportive environment.
[2023-07-04 07:00] VITALS: RESP 12; RESP 16
[2023-07-04] MEDS: DOXYCYCLINE 100MG CAPSULE PO SCH ×2 (13:53→20:21)
[2023-07-04] MEDS: dextroamphetamine/amphetamine 5mg tablet PO SCH ×2 (13:53→13:58)
--- NOTE | 2023-07-04 13:57 | NUR ---
WOC NOTE: Patient continues to be combative per MD notes. WOC care deferred until the pt is less aggressive and out of seclusion. WOC will continue to follow.
[2023-07-04] MEDS: NICOTINE POLACRILEX 2 MG LOZENGE BC PRN (15:58)
[2023-07-04] MEDS: LORazepam 1 MG tablet PO PRN (16:13)
[2023-07-04] MEDS: JUVEN Shake w/Arg/Glut/Ca2+Bmb (Juven 19.3gm) pkt 240ml PO SCH (18:03)
--- NOTE | 2023-07-04 18:04 | NUR ---
Nursing Progress Note: Greg Problem : Patient admitted to [facility] on a 5150 DTS: patient was lying down in the road on [address]. He stated that he wanted to get hit by a bus. He was also apparently jumping in front of cars. He has hx of TBI. Interventions : Introduced self and attempted to established rapport, maintained a safe and supportive environment, provided clear and simple instructions, attempted to orient to reality, monitored behavior and provided redirection as needed, completed ordered wound care, and maintained Q 15min safety checks. Response : Received patient sleeping in the observation room. Patient slept until 13:30, morning medications were given at that time. Patient is hungry and his lunch was given to him with snacks as he missed breakfast. Patient apologized for behavior yesterday. Patient requested a nicotine lozenge, which was given. Moments later he was yelling loudly down the hallway, attempted to talk to patient and he was yelling even louder. Patient stating that he just wants to have a cigarette. Security called as standby as we discussed department expectations, getting more lozenges for patient so that the cravings are not as bad. Patient just stating that he wants to just leave. Security explaining that he cannot leave because of the legal process of him being on a hold. Ativan 1 mg given along with more snacks to keep patient comfortable. Patient to have 2 nicotine lozenges at a time, so his frustration tolerance is better controlled. Plan : Pt. requires interruption of current crisis, medication adjustments, and a safe and supportive environment.
[2023-07-04 20:00] VITALS: BP 120/81; PULSE 107; RESP 14; TEMP 97.3; O2SAT 99
[2023-07-04] MEDS: OLANZapine 2.5MG tablet PO SCH (20:21)
--- NOTE | 2023-07-05 00:06 | NUR ---
Nursing Progress Note: Problem : Patient admitted to [facility] on a 5150 DTS: patient was lying down in the road on [address]. He stated that he wanted to get hit by a bus. He was also apparently jumping in front of cars. He has hx of TBI. Intervention: The patient is on q 15 minute safety checks. One to one with the patient to assess for severity of mood symptoms and risk to harm others or himself. Dressing to left knee CDI. Response: The patient was up on the unit and appeared to be in good spirits. When asked how his mood was he stated that "I feel antzy. I'm ready to go" He stated that he would like to try and find a place where he can have his cat who is currently being fostered. He denied medication side effects. He denies thoughts to harm himself or others. At this time he has not had any outbursts. He took his evening medications without problems. Psychotic symptoms are denied. Plan: Continue plan of care.
[2023-07-05 07:00] VITALS: BP 108/82; PULSE 94; RESP 16; TEMP 97.6; O2SAT 99
[2023-07-05] MEDS: dextroamphetamine/amphetamine 5mg tablet PO SCH ×2 (07:50→13:31)
[2023-07-05] MEDS: DOXYCYCLINE 100MG CAPSULE PO SCH ×2 (07:51→20:24)
[2023-07-05] MEDS: NICOTINE POLACRILEX 2 MG LOZENGE BC PRN (07:52)
[2023-07-05] MEDS: JUVEN Shake w/Arg/Glut/Ca2+Bmb (Juven 19.3gm) pkt 240ml PO SCH ×3 (07:54→18:00)
[2023-07-05] MEDS: LORazepam 1 MG tablet PO PRN ×2 (10:52→19:37)
--- NOTE | 2023-07-05 17:48 | NUR ---
Nursing Progress Note: Greg Problem : Patient admitted to [facility] on a 5150 DTS: patient was lying down in the road on [address]. He stated that he wanted to get hit by a bus. He was also apparently jumping in front of cars. He has hx of TBI. Interventions : Introduced self and attempted to established rapport, maintained a safe and supportive environment, provided clear and simple instructions, attempted to orient to reality, monitored behavior and provided redirection as needed, completed ordered wound care, and maintained Q 15min safety checks. Response: Patient awake in his room at change of shift. Patient requesting food and Adderall. Patient went to breakfast and ate his breakfast and was given a sandwich because he did not receive double portions as ordered. Patient took his medications without incident. Approximately a half an hour later, patient was heard yelling from his room. He was stating that he is so bored, he misses his cat, he just wants out of here. Patient was given Ativan 1 mg for agitation. Patient took a nap and is now up on the floor. Plan : Pt. requires interruption of current crisis, medication adjustments, and a safe and supportive environment.
[2023-07-05 19:00] VITALS: RESP 16; O2SAT 100
[2023-07-05 20:00] VITALS: BP 130/89; PULSE 112; RESP 16; TEMP 97.9; O2SAT 100
[2023-07-05] MEDS: OLANZapine 2.5MG tablet PO SCH ×2 (20:25→23:05)
--- NOTE | 2023-07-06 03:24 | NUR ---
Nursing Progress Note: Problem : Patient admitted to [facility] on a 5150 DTS: patient was lying down in the road on [facility]. He stated that he wanted to get hit by a bus. He was also apparently jumping in front of cars. He has hx of TBI. Intervention: The patient is on q 15 minute safety checks. One to one with the patient to assess for severity of mood symptoms and risk to harm others or himself. Dressing to left knee CDI. Response: The patient is observed pacing the halls following shift change. Patient exhibits anxiety. Patient was given Ativan 1 mg PO along with a nicotine lozenge. The patient was later observed ambulating the hallway, he has his DOUGIE wrap applied in a tourniquet fashion around his right thigh. The dressing was removed from his left knee. No discharge is present to the left knee wound. The knee is not hot. This law writer cleaned the wound, applied neosporin, it was then dressed with a non adherent dressing with foam tape. The soiled dougie dressing was not re-used. The patient later tore off the new knee dressing. This was then replaced with a short wrap of Coban, the patient was satisfied with the Coban. The patient tells this law writer that he intends to leave tomorrow. He states he needs to protect cats near a igiugig bed. The patient is labile at times. Zyprexa 2.5 mg HS was repeated X1. Patient calmed and went to sleep. Plan: Continue plan of care.
[2023-07-06 07:00] VITALS: RESP 12; O2SAT 99
[2023-07-06 08:00] VITALS: BP 112/76; PULSE 87; RESP 12; TEMP 97.3; O2SAT 99
[2023-07-06] MEDS: dextroamphetamine/amphetamine 5mg tablet PO SCH ×2 (08:17→13:08)
[2023-07-06] MEDS: propranolol 10mg tablet PO SCH ×2 (08:17→13:08)
[2023-07-06] MEDS: DOXYCYCLINE 100MG CAPSULE PO SCH ×2 (08:17→21:02)
[2023-07-06] MEDS: JUVEN Shake w/Arg/Glut/Ca2+Bmb (Juven 19.3gm) pkt 240ml PO SCH ×3 (08:21→18:02)
--- NOTE | 2023-07-06 10:39 | NUR ---
WOC NOTE: Spoke to primary nurse for this patient who reports the wound care was completed this am per updated MD order. The patient had been agitated the past few days but she was able to provide care. She also tells me MD orders were updated to triple antibiotic ointment and gauze as the wound does not require packing at this time per MD. The patient was ok with this plan per nursing. To avoid further agitation, wound care will recommend changing the dressing every other day and PRN displacement. WOC will continue to follow patients progress. Report provided to primary nurse.
[2023-07-06 12:58] VITALS: BP 103/73; PULSE 84; O2SAT 100
--- NOTE | 2023-07-06 13:50 | NUR ---
DISCHARGE PLAN Greg wants to return to his camp upon discharge. He is on wait-list for [facility]. He is aware he needs to call or walk in on Sunday. Greg can follow up with [facility] at [facility]. He has wound care follow up appointment scheduled for 07/10/23 here at [facility]. Crisis resources were explained to him. LARRY Larkin
--- NOTE | 2023-07-06 16:53 | NUR ---
Nursing Progress Note: Greg Problem : Patient admitted to [facility] on a 5150 DTS: patient was lying down in the road on [address]. He stated that he wanted to get hit by a bus. He was also apparently jumping in front of cars. He has hx of TBI. Interventions : Introduced self and attempted to established rapport, maintained a safe and supportive environment, provided clear and simple instructions, attempted to orient to reality, monitored behavior and provided redirection as needed, completed ordered wound care, and maintained Q 15min safety checks. Response: Received pt asleep in bed. Pt woke for morning medications and took them cooperatively. Pt ate meals in the community room and participated in snacks. Pt took a shower this morning and changed into clean clothing. Wound care performed per orders. Pt stated he was agitated with the child protective services social worker for asking him questions he didnt know the answers to. This RN left a message for his child protective services social worker to contact him per his request. Offered pt PRN medications, pt declined. Pt requested to speak with Psychiatrist, message sent. Pt slammed door shut and began yelling in his room loudly I want to go home! Pt educated that being calm is the first step to leaving. Pt disagreed and stated your making money off of me and I want to go now! Pt again declined PRN for anxiety. Performed 1:1 bedside. Pt denies SI/HI and AVH. Pt active on the unit observed interacting with staff. Pt requested to be weighed today and once weighed stated Tatum lost weight because Im floating. Pt became agitated again in the late afternoon stating that he needs to leave. Pt was able to calm down with help from staff. Pt trimmed his hair today with clippers. Plan : Pt. requires interruption of current crisis, medication adjustments, and a safe and supportive environment.
[2023-07-06] MEDS: NICOTINE POLACRILEX 2 MG LOZENGE BC PRN ×2 (17:15→21:02)
[2023-07-06 20:00] VITALS: BP 132/80; PULSE 87; RESP 18; TEMP 97.5; O2SAT 97; O2SAT 99
[2023-07-06] MEDS: LORazepam 1 MG tablet PO PRN (21:01)
[2023-07-06] MEDS: OLANZapine 2.5MG tablet PO SCH (21:02)
--- NOTE | 2023-07-07 03:25 | NUR ---
Nursing Progress Note: Problem : Patient admitted to [facility] on a 5150 DTS: patient was lying down in the road on [address]. He stated that he wanted to get hit by a bus. He was also apparently jumping in front of cars. He has hx of TBI. Intervention: The patient is on q 15 minute safety checks. One to one with the patient to assess for severity of mood symptoms and risk to harm others or himself. Dressing to left knee CDI. Response: Patient continues to pace the unit following shift change. At times patient is labile then calm. He tells this curriculum writer that he is the protector of the female patients on the unit. Patient continues to be delusional. He believes he saw this curriculum writer at a local restaurant, and, "I think I threw something at your truck, it's gold colored, right. The patient states he believes this curriculum writer is completing "secret [employer] paperwork." Patient was given Zyprexa 2.5 mg twice. In addition Ativan 1 mg was given PO. The patient denies S/I or H/I. He stil desires discharge. Patient gradually retired to bed and sleep. His knee dressing remains intact. Plan: Continue plan of care.
[2023-07-07 08:00] VITALS: BP 104/65; PULSE 74; RESP 12; TEMP 98.4; O2SAT 99
[2023-07-07] MEDS: JUVEN Shake w/Arg/Glut/Ca2+Bmb (Juven 19.3gm) pkt 240ml PO SCH (08:00)
[2023-07-07] MEDS: DOXYCYCLINE 100MG CAPSULE PO SCH (08:04)
[2023-07-07] MEDS: propranolol 10mg tablet PO SCH (08:04)
[2023-07-07] MEDS: dextroamphetamine/amphetamine 5mg tablet PO SCH ×2 (08:04→12:29)
[2023-07-07] MEDS ORDERED: PROP10TA10 PO (09:34)
[2023-07-07] MEDS ORDERED: AMPH15TA PO (09:34)
[2023-07-07] MEDS ORDERED: NEOM1OIN8 TOP (09:34)
[2023-07-07] MEDS ORDERED: NICO-907 BC (09:34)
[2023-07-07] MEDS ORDERED: OLAN2.5T28 PO (09:34)
--- NOTE | 2023-07-07 15:35 | NUR ---
Discharge Note Patient was received at 0615 am. Patient was awaken to take morning medications and then retuned to sleep. Nurse noted patient had difficulty opening left hand. Patient participated in breakfast and talked to Dr. Burton. He was informed he would be discharging. Nurse redressed the wound on his knee and gave patient supplies to dress it at home. Patient signed all discharge paperwork and double checked belongings before leaving. Patient left unit at 1215
== END 2023-07-07 12:20 | disposition home or self-care (01) | DRG 885 ==
LOC: ER 13:44 → ADULT MH 06-26 17:00 → ER 06-26 17:26
PROVIDERS: ADMIT Psychiatry & Neurology Psychiatry; ATTEND Psychiatry & Neurology Psychiatry
DX: F20.0 Paranoid schizophrenia (principal); R45.851 Suicidal ideations; L02.416 Cutaneous abscess of left lower limb; Z59.00 Homelessness unspecified; F15.14 Other stimulant abuse with stimulant-induced mood disorder; F31.12 Bipolar disorder, current episode manic without psychotic features, moderate; Z20.822 Contact with and (suspected) exposure to COVID-19; F17.200 Nicotine dependence, unspecified, uncomplicated; L70.9 Acne, unspecified; F12.10 Cannabis abuse, uncomplicated; Z78.1 Physical restraint status; Z56.0 Unemployment, unspecified; Z87.820 Personal history of traumatic brain injury; F39 Unspecified mood [affective] disorder
CPT/HCPCS: 36415; 73721; 80053; 80305; 80320; 84443; 85025; 87070; 87077; 87081; 87186; 87811; 99285; A6212; A6253; A6258; A6266; A6446; A6449; J0515; J1200; J1630; J2060

== ENCOUNTER 2024-04-08 19:48 | Emergency (ER) | payer MEDICARE, MEDICAID ==
[~2024-04-08] VITALS: Ht 188 cm; Wt 68.2 kg
[~2024-04-08 19:48] MED LIST changes: +AMPH15TA PO; -CLIN-97 PO; -DOXY-1 PO; -NAPR-56 PO; +NEOM1OIN8 TOP; +NICO-907 BC; +OLAN2.5T28 PO; +PROP10TA10 PO; -UNABLE TO OBTAIN
[2024-04-08 20:20] VITALS: BP 142/91; PULSE 93; RESP 14; TEMP 99; O2SAT 99
[2024-04-08] MEDS ORDERED: AMOX-117 PO (20:24)
[2024-04-08] MEDS: ketorolac trometh. 30mg/ml inj. IM ONE (20:38)
== END 2024-04-08 20:50 | disposition home or self-care (01) ==
LOC: ER 19:49
DX: K04.7 Periapical abscess without sinus (principal); K08.89 Other specified disorders of teeth and supporting structures; F31.9 Bipolar disorder, unspecified; F12.90 Cannabis use, unspecified, uncomplicated; F15.90 Other stimulant use, unspecified, uncomplicated; Z79.2 Long term (current) use of antibiotics; Z79.899 Other long term (current) drug therapy
CPT/HCPCS: 96372; 99283; J1885

== ENCOUNTER 2025-04-08 18:03 | Inpatient (IN) | payer MEDICARE, MEDICAID ==
[~2025-04-08] VITALS: Ht 188 cm; Wt 66.4 kg
[~2025-04-08 18:03] MED LIST changes: -OLAN2.5T28 PO; +OLAN2.5T77 PO
[2025-04-08] MEDS ORDERED: NO HOME MEDS (18:35)
--- NOTE | 2025-04-08 19:35 | Physician Documentation ---
History of Present Illness ~ Chief Complaint: Mental Health Eval Stated Complaint: MH Time Seen by MD: 19:12 Primary Medical Doctor: NONE Mode of Arrival: POV HPI Patient presents to the emergency room with significant psychologic distress. He reports that he is working with his friend regarding their fentanyl addiction and also mumbles something about two other girls dying. He relates that it he feels that he is at his wits end. No active suicidal thought but he is here because he feels this may Snowball into a suicidal attempt. Medication Reconciliation Allergies: Coded Allergies: No Known Allergies (Unverified , 06/23/23) Miscellaneous Medications Home Med List (No Home Medications), (Reported) Discontinued Medications Dextroamphetamine/Amphetamine (Amphetamine Salts 15 mg Tablet), 1 TAB PO BID@0800,1400 Discontinued Reason: patient no longer taking Neomy Sulf/Bacitrac Zn/Poly (Triple Antibiotic Ointment), 1 APPLIC TOP TID PRN for infection Discontinued Reason: patient no longer taking Nicotine Polacrilex (Nicotine Lozenge), 2 MG BC TID PRN for nicotine craving Discontinued Reason: patient no longer taking Olanzapine (Olanzapine), 2.5 MG PO HS Discontinued Reason: patient no longer taking Propranolol Hcl* (Inderal*), 10 MG PO BID@0800,1400 Discontinued Reason: patient no longer taking Past Medical History Past Medical History: No Pertinent History, Bipolar, Depression, Psychosis, Schizophrenia Past Surgical History: no surgical history Patient History: Patient reports no known family medical history. Alcohol Use: Other Drug Use: marijuana, methamphetamine Lives with: Alone, Other Lives In: Homeless, Other Occupation: unemployed, other Review of Systems ROS All review of systems negative except as per HPI Physical Exam Vital Signs: Temperature: 98.0, Heart Rate: 97, Respiratory Rate: 18, BP: 157/104, Pulse Oximetry: 99, Weight: 67.450 Oxygen Flow Rate: 0 Physical Exam General: Patient is awake, alert, oriented x4 in no acute distress Head: Normocephalic and atraumatic. Eyes: Conjunctival normal. EOMI. PERRL. ENT: Mucous membranes moist. Neck: Supple, trachea is midline. Chest: Clear to auscultation bilaterally without rales, rhonchi, or wheezes. T here is no accessory muscle use or retractions. Cardiac: RRR without murmurs, gallops, or rubs. Psych: Cooperative, good eye contact, suicidal, decreased affect Progress Results/Orders Results/Orders Orders - ARSH BREWER MD Urinalysis (04/08/25 19:39) Drug Screen, Urine (04/08/25 19:39) Med Rec (04/08/25 19:39) 1799.11 (04/08/25 19:39) Close Observation Level (04/08/25 19:39) Covid19 Binax Poc Result Entry (04/08/25 19:39) Substance Use Navigator (04/08/25 19:39) Regular Diet (04/09/25 Breakfast) Completed Orders - ARSH BREWER MD Cbc/Diff (04/08/25 19:39) Ethanol (04/08/25 19:39) TSH (04/08/25 19:39) BMP (04/08/25 19:39) Vital Signs 04/08/25 04/08/25 18:08 18:50 Temp 98.0 Pulse 97 Resp 18 B/P (MAP) 157/104 Pulse Ox 99 O2 Flow Rate 0 Laboratory Tests Test 04/08/25 19:46 White Blood Count 4.8 Red Blood Count 3.88 L Hemoglobin 12.1 L Hematocrit 34.4 L Mean Corpuscular Volume 88.5 Mean Corpuscular Hemoglobin 31.2 H Mean Corpuscular Hemoglobin Concent 35.2 Red Cell Distribution Width 12.9 Platelet Count 263 Mean Platelet Volume 7.3 L Neutrophils (%) (Auto) 59.4 Lymphocytes (%) (Auto) 27.9 Monocytes (%) (Auto) 10.3 Eosinophils (%) (Auto) 1.5 Basophils (%) (Auto) 0.9 Neutrophils # (Auto) 2.8 Lymphocytes # (Auto) 1.3 Monocytes # (Auto) 0.5 Eosinophils # (Auto) 0.1 Basophils # (Auto) 0.0 CBC Comment Sodium Level 136 Potassium Level 3.8 Chloride Level 101 Carbon Dioxide Level 29.3 Anion Gap 6 L Blood Urea Nitrogen 19 H Creatinine 0.92 Estimated GFR/1.73 m2 87 BUN/Creatinine Ratio 20.7 H Glucose Level 85 Calcium Level 8.8 Albumin 3.3 L Thyroid Stimulating Hormone (TSH) 1.35 Chemistry Comments Ethyl Alcohol Level < 10 Medical Decision Making Findings Patient presented to the emergency room with suicidal ideation. Differentials include but are not limited to suicidal ideation, dysthymia, depression, gravely disabled. Labs reviewed and there was no evidence of major pathologic derangements and patient is medically cleared for mental health evaluation. Departure Disposition: 30 STILL A PATIENT Impression: Primary Impression: Suicidal ideation Condition: Guarded Referrals: NO PRIMARY CARE PROVIDER (PCP) Signature Scribe Signature: No scribe Attestation: The note accurately reflects work and decisions made by me.Arsh Brewer MD 04/08/25 20:58 ARSH BREWER MD Apr 08, 2025 19:35
[2025-04-08 19:55] LABS: MEAN PLATELET VOLUME 7.3 FL (7.4-10.4); RED CELL DISTRIBUTION WIDTH 12.9 % (11.5-14.5)
[2025-04-08 20:22] LABS: CREATININE 0.92 MG/DL (0.60-1.10); TOTAL CARBON DIOXIDE 29.3 MMOL/L (24-32); eCRCL 93 ML/MIN; eGFR 87 ML/MIN
[2025-04-08 20:24] LABS: ETHANOL < 10 MG/DL (<10)
[2025-04-09 07:15] LABS: LEUKOCYTE ESTERASE ,URINE NEGATIVE (Neg); NITRITES, URINE NEGATIVE (Neg); OCCULT BLOOD,URINE NEGATIVE (Neg)
[2025-04-09 07:17] LABS: UA COLLECTION TYPE NON-SPECIFIED
[2025-04-09 07:29] LABS: URINE AMPHETAMINE SCREEN POSITIVE (Neg); URINE BARBITUATE SCREEN NEGATIVE (Neg); URINE BENZODIAZEPINES SCREEN NEGATIVE (Neg); URINE CANNABINOID SCREEN POSITIVE (Neg); URINE COCAINE SCREEN NEGATIVE (Neg); URINE METHADONE SCREEN NEGATIVE (Neg); URINE OPIATE SCREEN NEGATIVE (Neg); URINE PHENCYCLIDINE SCREEN NEGATIVE (Neg)
[2025-04-11 07:00] VITALS: RESP 14; O2SAT 98
[2025-04-11] MEDS ORDERED: loperamide 2mg capsule PO PRN ×2 (07:55)
[2025-04-11] MEDS ORDERED: magnesium hydroxide 30ml (MOM) UD suspension PO PRN ×2 (07:55)
[2025-04-11] MEDS ORDERED: mag hydrox/Alum hydrox/simeth 30ml oral suspension PO PRN ×2 (07:55)
[2025-04-11 08:00] VITALS: BP 135/75; PULSE 71; RESP 14; TEMP 97.9; O2SAT 98
--- NOTE | 2025-04-11 12:49 | HISTORY AND PHYSICAL ---
History & Physical - Blank History and Physical Greg Booker is a 49yo male who presents to the [facility] ED room with significant psychologic distress. He reports that he is working with his friend regarding their fentanyl addiction and also mumbles something about two other girls dying. He feels that he is at his wits end. No active suicidal thought but he is here because he feels this may Snowball into a suicidal attempt. CHART REVIEW: Patient presented disorganized and responding to internal stimuli. He reports wanting to be and does not want to live anymore. Patient is a tall thin male. He has buzz cut short dark hair. Graying loaiza and mustache. He says he is here because 'Decided to check in.' 'because I need break'. 'not really from anything.' 'I can't do this.' 'gotta go.' He got up quickly and left the interview room. Patient is a very poor historian. Unable to take a history d/t refusal to be seen. Not very engaging Allergies no known allergies Labs: COVID-negative CBC: Shows mild anemia CMP: Creatinine 0.92, eGFR 87 TSH 1.35 Alcohol negative Positive for amphetamines, THC Eye contact: Poor; Behavior: Uncooperative. Agitated. Speech: Minimal. Mood: Agitated. Affect: Flat Thought process: Mild disorganization, Seems to be a it Paranoid, did not express Delusions. Thought Content: unable to continue interview. Cognition: A&O X3 not sure he understands why; Insight: Very Poor; Judgment: Very Poor; SI Unable to assess/HI Unable to assess, AH Seems to be responding to internal stimuli/VH Denies Past Psychiatric History Past Psychiatric History Patient has a history with mental health treatment with [facility] a adult services for schizophrenia, substance abuse. Patient's charge was recently closed with the last 30 days due to missed appointments and nonparticipation with treatment. 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 Past Medical History Past Medical History unable to assess. Past Surgical History Past Surgical History unable to assess. Past Family History Patient History: Patient reports no known family medical history. Substance Abuse History Substance Abuse History Methamphetamines Opioids. THC Personal History Current Living Situation Girlfriend who is using meth and fentanyl. He hx of meth, fentanyl Marital & Relationship History Patient single never and no children Sexual History Defer Occupational History Patient is unemployed. Social Activity Taken From Prior H&P Patient was born in [facility]. States he was a [place] [employer] [place] [employer] for 6 years no siblings. Then he stated he has some kind of sister does not know who she is or where she is at. School states he did well in. Would not answer whether he graduated. Patient would not answer whether he has any hobbies Mosque defer Legal History unable to evaluate History unable to evaluate Developmental History Childhood unable to assess. Assessment/Plan Problems/Diagnosis: (1) Bipolar affective disorder Assessment & Plan: Mood disorder disorder with methamphetamine. I do not have enough clinical information to determine whether he is depressed or even bipolar. Patient was not cooperative with exam. He certainly has made it very clear that if he does not have housing he we will kill himself. Whether he is hearing voices is unknown. B52 (Haldol 5mg, Ativan 2mg and Benadryl 50mg) ordered after becoming extremely aggressive, agitated, threatening behaviors, yelling and screaming. Will try to assess tomorrow. Think about starting Depakote. Monitoring by Staff, Milieu, Group, and Individual counseling as needed -- According to the [facility] Suicide Assessment the above named patient is on Q 15 MINUTE CHECKS. DTS-- The patient does not have a good safety plan for discharge at this time. We are still titrating medications to an effective dose while maintaining a therapeutic environment to prevent decompensation and readmission. DISCHARGE UNSURE AT THIS TIME... REVIEW OF Clinical notes [X ] RN notes [X] PCT documentation [X] SW notes [X] Labs [ X] Medications [X] Care trends/care activity [X] Vitals [X] DISCUSSION WITH building custodian [X] (2) Psychosis (3) Methamphetamine abuse Additional Plan CODING VISIT-PSYCHIATRY Date of Service: Apr 11, 2025 Billing Provider: INÉS MENDOZA Psych Common Visit Codes: [id number] INP/OBS CARE (Mod) Problem Qualifiers (1) Bipolar affective disorder: (2) Psychosis: INÉS MENDOZA Apr 11, 2025 12:49
[2025-04-11] MEDS: haloperidol lactate 5mg/ml inj ONE (16:47)
[2025-04-11] MEDS: haloperidol lactate 5mg/ml inj IM ONE (16:48)
--- NOTE | 2025-04-11 16:55 | HISTORY AND PHYSICAL-Residence ---
History & Physical Providers to CC Resident Creating Document: KRISTEN SAHNI RES CC: JAXON CHINO MD ~ History of Present Illness Primary Medical Doctor: NONE Reason for Admit\Complaint: grave disability History of Present Illness Patient is not giving any history and saying saying to him so that he is rude and when asked that he has any medical issues he said he does not have any Rest of the history is obtained from EMR Patient is admitted to the [facility] on 04/09 for significant psychological distress. He has history of schizophrenia. Urine tox is positive for amphetamines and THC Allergies: Coded Allergies: No Known Allergies (Unverified , 06/23/23) Home Medications Home Medications Active Reported No Home Medications (Home Med List) Each Past Medical History Past Medical History Schizophrenia Substance abuse Past Surgical History Surgical History Comment Reports no surgeries Family History Family History: Patient reports no known family medical history. Past Social History Social History Comment Patient is homeless, unemployed . Consumes marijuana and amphetamine Alcohol Use: Other Drug Use: Marijuana, Methamphetamine Lives with: Alone, Other Lives In: Homeless, Other Occupation: unemployed, other ROS ROS Unable to obtain as patient does not want to participate in the interview Exam Vitals: Vital Signs Date Time Temp Pulse Resp B/P (MAP) Pulse Ox O2 Delivery O2 Flow Rate FiO2 04/11/25 08:00 97.9 71 14 135/75 (95) 98 Room Air 04/10/25 08:15 0 General: Patient declines for physical examination Diagnostic Data Last Recorded Lab Results: 04/08/25194504/08/251945 Additional Plan 49-year-old male with history of schizophrenia, substance abuse is admitted to the [facility] for psychological distress and suicidal thoughts Schizophrenia -management per Psychiatry Methamphetamine abuse -patient is not receptive to counseling at this time Mild anemia -hb 12.1 All labs and vitals reviewed, hospitalist service will continue to follow the patient Date of Service: Apr 11, 2025 Billing Provider: JAXON CHINO MD, HARIVARSHA, RES Apr 11, 2025 16:55
[2025-04-11] MEDS: OLANZapine 5mg rapidly disint. tablet PO ONE (17:02)
[2025-04-11] MEDS: OLANZapine 5mg rapidly disint. tablet ONE (17:02)
[2025-04-11 19:00] VITALS: RESP 16
[2025-04-11 20:00] VITALS: RESP 16
[2025-04-12 07:00] VITALS: RESP 16
[2025-04-12 08:00] VITALS: RESP 16
--- NOTE | 2025-04-12 10:34 | PROGRESS NOTE ---
Progress Note Dictate Providers to CC ~ Central Line/PICC still needed: N\A Antibiotic Ordered?: No Objective Vitals Vital Signs Date Time Temp Pulse Resp B/P (MAP) Pulse Ox O2 Delivery O2 Flow Rate FiO2 04/12/25 08:00 16 04/11/25 20:00 Room Air 04/11/25 08:00 97.9 71 135/75 (95) 98 04/10/25 08:15 0 Lab Results: 04/08/25194504/08/251945 Problem\Assessment\Plan Problems/Diagnosis: (1) Bipolar affective disorder (2) Psychosis (3) Methamphetamine abuse Psychiatrist's Progress Note Date of Service: Apr 12, 2025 Notes Greg Booker is a 49yo male who presents to the [facility] ED room with significant psychologic distress. He reports that he is working with his friend regarding their fentanyl addiction and also mumbles something about two other girls dying. He feels that he is at his wits end. No active suicidal thought but he is here because he feels this may Snowball into a suicidal attempt. CHART REVIEW: Patient presented disorganized and responding to internal stimuli. He reports wanting to be and does not want to live anymore. Patient is a tall thin male. He has buzz cut short dark hair. Graying loaiza and mustache. He was seen in his room. Patient is laying on an unmade bed wrapped in the bottom sheet. He is disheveled in appearance. He initially agrees to speak with me. He states he is not suicidal and 'that is what I have to say to get into the hospital.' When asked why he wants to get into the hospital he states 'because I'm depressed'. When asked if he is willing to try medication to treat the depression he becomes agitated and states 'I'm not your fucking guinea pig!' When asked what he feels we should do to help him then, he states 'I took adderall.' And that is all he wants and if I can't help with that then 'fucking check me out!' Patient is a very poor historian. Patient is agitated and not too cooperative. Mental Status Eye contact: Poor; Behavior: Uncooperative. Agitated. Speech: Minimal. Mood: Agitated. Affect: Flat Thought process: Mild disorganization, Seems to be a it Paranoid, did not express Delusions. Thought Content: Wants adderall. Cognition: A&O X3 not sure he understands why; Insight: Very Poor; Judgment: Very Poor; SI Denies/HI Did not assess, AH unsure if he is responding to internal stimuli/VH Denies Results Of any Diagn. Testing Labs: COVID-negative CBC: Shows mild anemia CMP: Creatinine 0.92, eGFR 87 TSH 1.35 Alcohol negative Positive for amphetamines, THC Treatment Mood disorder disorder with methamphetamine. I do not have enough clinical information to determine whether he is depressed or even bipolar. Patient was not cooperative with exam. He certainly has made it very clear that if he wants adderall and unwilling to take medications. I will start some Depakote anyhow and see if he takes it... Unsure if he is hearing voices or not. Depakote Sprinkles 500mg BID. Monitoring by Staff, Milieu, Group, and Individual counseling as needed -- According to the [place] Suicide Assessment the above named patient is on Q 15 MINUTE CHECKS. DTS-- The patient does not have a good safety plan for discharge at this time. We are still titrating medications to an effective dose while maintaining a therapeutic environment to prevent decompensation and readmission. DISCHARGE UNSURE AT THIS TIME REVIEW OF Clinical notes [X ] RN notes [X] PCT documentation [X] SW notes [X] Labs [ X] Medications [X] Care trends/care activity [X] Vitals [X] DISCUSSION WITH buttonholer [X] CODING VISIT-PSYCHIATRY Date of Service: Apr 12, 2025 Billing Provider: INÉS MENODZA Psych Common Visit Codes: [id number] INP/OBS CARE(Mod) Problem Qualifiers (1) Bipolar affective disorder: (2) Psychosis: INÉS MENDOZA Apr 12, 2025 10:33
[2025-04-12 19:00] VITALS: RESP 16; O2SAT 98
[2025-04-12] MEDS: divalproex sod 125mg sprinkle cap PO SCH (19:01)
[2025-04-12 19:42] VITALS: BP 121/73; PULSE 127; RESP 16; TEMP 97.7
[2025-04-13 07:00] VITALS: RESP 14; O2SAT 98
[2025-04-13 08:00] VITALS: BP 120/72; PULSE 70; RESP 14; TEMP 98.5; O2SAT 98
--- NOTE | 2025-04-13 08:10 | PROGRESS NOTE ---
Progress Note Dictate Providers to CC ~ Antibiotic Ordered?: No Objective Vitals Vital Signs Date Time Temp Pulse Resp B/P (MAP) Pulse Ox O2 Delivery O2 Flow Rate FiO2 04/12/25 19:42 97.7 127 16 121/73 (89) Room Air 04/12/25 19:00 98 0.0 Psychiatrist's Progress Note Date of Service: Apr 13, 2025 Notes Greg Booker is a 49yo male who presents to the [facility] ED room with significant psychologic distress. He reports that he is working with his friend regarding their fentanyl addiction and also mumbles something about two other girls dying. He feels that he is at his wits end. No active suicidal thought but he is here because he feels this may Snowball into a suicidal attempt. CHART REVIEW: Patient presented disorganized and responding to internal stimuli. He reports wanting to be and does not want to live anymore. Patient is a tall thin male. He has buzz cut short dark hair. Graying loaiza and mustache. He was seen in his room. Patient is laying on an unmade bed wrapped in the bottom sheet. He is disheveled in appearance. He initially agrees to speak with me. He states he is not suicidal and 'that is what I have to say to get into the hospital.' When asked why he wants to get into the hospital he states 'because I'm depressed'. When asked if he is willing to try medication to treat the depression he becomes agitated and states 'I'm not your fucking guinea pig!' When asked what he feels we should do to help him then, he states 'I took adderall.' And that is all he wants and if I can't help with that then 'fucking check me out!' Assessment: Patient is a very poor historian. Patient is agitated and not too cooperative. Mental Status Eye contact: Poor; Behavior: Uncooperative. Agitated. Speech: Minimal. Mood: Agitated. Affect: Flat Thought process: Mild disorganization, Seems to be a it Paranoid, did not express Delusions. Thought Content: Wants adderall. Cognition: A&O X3 not sure he understands why; Insight: Very Poor; Judgment: Very Poor; SI Denies/HI Did not assess, AH unsure if he is responding to internal stimuli/VH Denies Results Of any Diagn. Testing Labs: COVID-negative CBC: Shows mild anemia CMP: Creatinine 0.92, eGFR 87 TSH 1.35 Alcohol negative Positive for amphetamines, THC Treatment Mood disorder disorder with methamphetamine. I do not have enough clinical information to determine whether he is depressed or even bipolar. Patient was not cooperative with exam. He certainly has made it very clear that if he wants adderall and unwilling to take medications. I will start some Depakote anyhow and see if he takes it... Unsure if he is hearing voices or not. Depakote Sprinkles 500mg BID. Monitoring by Staff, Milieu, Group, and Individual counseling as needed -- According to the [place] Suicide Assessment the above named patient is on Q 15 MINUTE CHECKS. DTS-- The patient does not have a good safety plan for discharge at this time. We are still titrating medications to an effective dose while maintaining a therapeutic environment to prevent decompensation and readmission. DISCHARGE UNSURE AT THIS TIME REVIEW OF Clinical notes [X ] RN notes [X] PCT documentation [X] notes [X] Labs [ X] Medications [X] Care trends/care activity [X] Vitals [X] DISCUSSION WITH sales representative consultant [X] CODING VISIT-PSYCHIATRY Date of Service: Apr 13, 2025 LKUASZ DOBBS [facility] Apr 13, 2025 08:10
--- NOTE | 2025-04-13 09:18 | DISCHARGE SUMMARY ---
Discharge Summary Providers to CC ~ Discharge Summary Hospital Course DATE OF ADMISSION: 04/09/25 DATE OF DISCHARGE: 04/13/25 Condition on DC: Stable 2 or more antipsychotic used: No 2/more antipsychotic addressed: No Does Patient smoke: No Smoking education given.: No *Problems/Diagnosis: (1) Bipolar affective disorder Status: Acute (2) Psychosis Status: Acute (3) Methamphetamine abuse Status: Acute CODING VISIT-PSYCHIATRY Date of Service: Apr 13, 2025 Problem Qualifiers (1) Bipolar affective disorder: (2) Psychosis: LUKASZ DOBBS [facility] Apr 13, 2025 09:18
--- NOTE | 2025-04-13 15:00 | PROGRESS NOTE- Residence ---
Progress Note - Resident Providers to CC Resident Creating Document: BRENNA SCHAEFER RES ~ Antibiotic Timeout Antibiotic Ordered?: No Subjective Patient has been discharged from the Mental Health unit before I could see the patient. Objective Vital Signs Date Time Temp Pulse Resp B/P (MAP) Pulse Ox O2 Delivery O2 Flow Rate FiO2 04/13/25 08:00 98.5 70 14 120/72 (88) 98 Room Air 04/12/25 19:00 0.0 Plan Plan 9-year-old male with history of schizophrenia, substance abuse is admitted to the [facility] for psychological distress and suicidal thoughts Schizophrenia -management per Psychiatry Methamphetamine abuse -patient is not receptive to counseling at this time Mild anemia -hb 12.1 Patient is already discharged from mental health unit Date of Service: Apr 13, 2025 Billing Provider: KEN PLUMMER MD Common Visit Codes: [id number]/OBS SAME DATE (LOW) BRENNA SCHAEFER RES Apr 13, 2025 15:00 KEN PLUMMER MD Apr 14, 2025 09:57
[2025-04-15 13:16] LABS: LORAZEPAM (ATIVAN) <10 ng/mL (50 - 240)
== END 2025-04-13 11:19 | disposition home or self-care (01) | DRG 885 ==
LOC: ER 18:03 → UNDOADMIN 04-09 19:30 → ADULT MH 04-09 19:30
PROVIDERS: ADMIT Psychiatry & Neurology Psychiatry; ATTEND Psychiatry & Neurology Psychiatry
PROC: GZHZZZZ Group Psychotherapy (ICD-10-PCS; principal; 2025-04-11)
PROC: GZ51ZZZ Individual Psychotherapy, Behavioral (ICD-10-PCS; 2025-04-11)
DX: F31.9 Bipolar disorder, unspecified (principal); F15.10 Other stimulant abuse, uncomplicated; F20.9 Schizophrenia, unspecified; Z20.822 Contact with and (suspected) exposure to COVID-19; D64.9 Anemia, unspecified; F29 Unspecified psychosis not due to a substance or known physiological condition; Z87.828 Personal history of other (healed) physical injury and trauma
CPT/HCPCS: 36415; 80048; 80305; 80320; 80346; 81003; 84443; 85025; 87081; 87811; 99285; J1200; J1630; J2060; Q0161; Q0163; Q0177

== ENCOUNTER 2025-04-20 15:27 | Emergency (ER) | payer MEDICARE, MEDICAID ==
[~2025-04-20] VITALS: Ht 188 cm; Wt 68.2 kg
[2025-04-20 15:29] VITALS: BP 134/81; PULSE 76; RESP 18; TEMP 97.9; O2SAT 100
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
--- NOTE | 2025-04-20 17:11 | RADIOLOGY REPORT ---
CHEST RADIOGRAPH Indication: lfall Technique: DI RIBS,UNILAT Comparison: None FINDINGS: The cardiac silhouette is unremarkable. The lungs demonstrate no pulmonary airspace consolidation. Th e pulmonary vasculature is unremarkable. There is no pleural effusion. There is no pneumothorax. Old right mid clavicular fracture deformity. Acute posterior left 5th rib fracture IMPRESSION: No pulmonary airspace consolidation. Acute posterior left 5th rib fracture.
[2025-04-20] MEDS ORDERED: HYDR-3965 PO (17:21)
[2025-04-20] MEDS: HYDROcodone/acetaminophen 10/325mg tab PO ONE (17:33)
[2025-04-20] MEDS: ketorolac trometh 30MG/ML vial 30 MG/ML VIAL IM ONE (17:33)
== END 2025-04-20 17:39 | disposition home or self-care (01) ==
LOC: ER 15:29
DX: S22.32XA Fracture of one rib, left side, initial encounter for closed fracture (principal); F12.90 Cannabis use, unspecified, uncomplicated; F15.90 Other stimulant use, unspecified, uncomplicated; Z59.00 Homelessness unspecified; V18.0XXA Pedal cycle driver injured in noncollision transport accident in nontraffic accident, initial encounter; Y93.89 Activity, other specified; Y92.89 Other specified places as the place of occurrence of the external cause; Y99.8 Other external cause status
CPT/HCPCS: 71100; 96372; 99284; J1885